=== PATIENT | female | born 1955 | race Caucasian/White ===

== ENCOUNTER 2016-11-30 13:09 | Outpatient (RCR) | payer OTHER | END 2017-02-21 | disposition home or self-care (01) | LOC: ONC 13:09 | PROVIDERS: ATTEND Internal Medicine Hematology & Oncology | DX: Z08 Encounter for follow-up examination after completed treatment for malignant neoplasm (principal); Z85.3 Personal history of malignant neoplasm of breast; I10 Essential (primary) hypertension; Z79.899 Other long term (current) drug therapy | CPT/HCPCS: 99213 ==

== ENCOUNTER 2017-05-17 14:13 | Outpatient (RCR) | payer OTHER | END 2017-07-30 | disposition home or self-care (01) | LOC: ONC 14:13 | PROVIDERS: ATTEND Internal Medicine Hematology & Oncology | DX: Z08 Encounter for follow-up examination after completed treatment for malignant neoplasm (principal); Z85.3 Personal history of malignant neoplasm of breast; I10 Essential (primary) hypertension; Z79.899 Other long term (current) drug therapy ==

== ENCOUNTER 2018-02-07 10:00 | Outpatient (CLI) | payer OTHER ==
[~2018-02-07] VITALS: Ht 170.2 cm; Wt 75.7 kg
[~2018-02-07 10:00] MED LIST: ATEN50TA PO; LEVO5TAB12 PO
== END 2018-02-07 10:58 ==
LOC: PREOP 10:00
PROVIDERS: ATTEND Internal Medicine
DX: Z01.818 Encounter for other preprocedural examination (principal); Z12.11 Encounter for screening for malignant neoplasm of colon; Z80.0 Family history of malignant neoplasm of digestive organs

== ENCOUNTER 2018-02-10 07:48 | Day surgery (SDC) | payer OTHER ==
--- NOTE | 2018-01-25 06:05 | HISTORY AND PHYSICAL ---
DATE OF SERVICE: HISTORY OF PRESENT ILLNESS: She is scheduled for a screening colonoscopy on the 02/10. She was seen in the office on 01/23/18. The patient is a 62-year-old white female referred by Dr. Camp for screening colonoscopy. She accomplished one other colonoscopy in [address] Couch and as far as she recalls no abnormalities were noted. She is deemed to be of higher than average risk as her father was diagnosed with colon cancer at the age of 71 and 2 of his brothers in their 70s as well and a grandfather of unknown age on his dad's side, all were diagnosed and ultimately succumbed to colon cancer. She also has a personal past history of breast cancer, treated with lumpectomy and radiation therapy in 2001. She reports otherwise feels well. She does complain of increased flatulence without belching, abdominal pain or blood in her stool. She denies any associated bloating and this has been going on for the past 6 months. FAMILY HISTORY: As stated in the HPI. PAST SURGICAL HISTORY: Significant for lumpectomy in 2001 with subsequent radiation therapy for localized breast cancer without evidence for recurrence and left total knee replacement in 2011 due to osteoarthritis. 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 PAST MEDICAL HISTORY: Significant for reported episodes of tachycardia, not ventricular in etiology as well as hypertension and then breast cancer as noted above without evidence for recurrence since 2001. MEDICATIONS ON ADMISSION: Include atenolol 50 mg daily, Xyzal 5 mg daily and a baby aspirin daily. PHYSICAL EXAMINATION: GENERAL: Reveals an anxious, pleasant white female, does not appear to be in acute distress. VITAL SIGNS: He is roughly 5 feet 6 inches, weighs 167 pounds with a blood pressure of 128/68. HEENT: Unremarkable. Sclerae nonicteric. Pharynx reveals no evidence for erythema with a Mallampati class 2 configuration. NECK: Revealed no JVD, adenopathy or bruits. CHEST: Clear. ABDOMEN: Soft, supple without mass, organomegaly or tenderness. No distention is noted. No bruits are noted. Bowel sounds are positive in all 4 quadrants. There is no evidence for hyperactivity. EXTREMITIES: Reveal no cyanosis, clubbing or edema. ASSESSMENT AND PLAN: 1. The patient is set up for screening colonoscopy on 02/10, deemed to be of higher than average risk due to personal history of breast cancer and a strong family history for colon cancer. Prep instructions with Suprep kit were given and questions were answered. 2. Increasing flatulence. History suggest the possibility that lactose intolerance may be contributing. We did discuss lactose free diet or supplemental enzymes OTC as directed prior to lactose containing foods as being options. We will discuss further after colonoscopy, possible recommendation for a probiotic therapy. In review of her electronic medical record and evaluation a little over 45 minutes care time spent, I thank you for the referral of this pleasant lady. Job ID: [id number] DocumentID: [id number] Dictated Date: 01/24/2018 11:54:58 Chief Lifestyle Officer Date: 01/24/2018 12:24:22 Dictated By: MIRTHA HASTINGS MD MTDD
[~2018-02-10] VITALS: Ht 170.2 cm; Wt 75.7 kg
[2018-02-10] MEDS ORDERED: D5 LR IV SOLUTION 1,000 ML IV STA (07:57)
[2018-02-10] MEDS ORDERED: D5 LR IV SOLUTION 1,000 ML IV ONE (07:59)
[2018-02-10] MEDS ORDERED: LIDOCAINE JELLY 2% (XYLOCAINE) 5 ML TUBE MM PRN (08:00)
[2018-02-10 08:25] VITALS: BP 127/67
[2018-02-10] MEDS ORDERED: fentaNYL INJECTION 100 MCG/2 ML AMP ONE ×2 (09:07→09:54)
[2018-02-10] MEDS ORDERED: MIDAZOLAM 2 MG/2 ML (VERSED) VIAL ONE ×2 (09:07→09:54)
[2018-02-10] MEDS ORDERED: LIDOCAINE JELLY 2% (XYLOCAINE) 5 ML TUBE ONE (09:08)
[2018-02-10] MEDS: fentaNYL INJECTION 100 MCG/2 ML AMP IVP PRN ×3 (09:40→10:00)
[2018-02-10] MEDS: MIDAZOLAM 2 MG/2 ML (VERSED) VIAL IVP PRN ×2 (09:45→09:55)
--- NOTE | 2018-02-10 10:24 | Pre-Op Note & Conscious Sedat ---
Pre-Operative Progress Note H&P Reviewed The H&P was reviewed, patient examined and no changes noted. Date H&P Reviewed: Feb 10, 2018 Time H&P Reviewed: 09:30 Conscious Sedation Pre-Proced ASA Class: 2 Airway Mallampati Classification: ([place] appropriate class) I. II. III, IV Lungs Heart ASA score ASA 1: a normal healthy patient ASA 2: a patient with a mild systemic disease (mid diabetes, controlled hypertension, obesity ASA 3: a patient with a severe systemic disease that limits activity (angina , COPD, prior Myocardial infarction) ASA 4: a patient with an incapacitating disease that is a constant threat to life (CHF, renal failure) ASA 5: a moribund patient not expected to survive 24 hrs. (ruptured aneurysm) ASA 6: a declared brain patient whose organs are being harvested. For emergent operations, add the letter E after the classification Grade 2 Sedation Plan: Analgesia, Amnesia, Plan communicated to team members, Discussed options with patient/fam, Discussed risks with patient/fam Note The patient is an appropriate candidate to undergo the planned procedure, sedation, and anesthesia. The patient immediately re-assessed prior to indication. MIRTHA HASTINGS MD Feb 10, 2018 10:24
[2018-02-10 10:30] VITALS: BP 105/57
[2018-02-10 11:00] VITALS: BP 139/71
[2018-02-10 11:50] VITALS: BP 139/71
--- NOTE | 2018-02-11 00:06 | OPERATIVE REPORT ---
DATE OF SERVICE: 02/10/2018 COLONOSCOPY INDICATION FOR THE PROCEDURE: Screening colonoscopy. DESCRIPTION OF PROCEDURE: The patient was placed in left lateral decubitus position. Prior to undergoing colonoscopy, digital rectal evaluation was performed. Anal sphincter tone was normal and the perianal reflexes intact. No abnormalities, no additional inspection of anal canal or distal rectal vault. The colonoscope was then inserted into the rectum under direct visualization and advanced to the cecum. The cecum was identified by identification of the ileocecal valve and cecal strap. Photographic documentation was obtained. Careful inspection was made as the colonoscope was withdrawn. FINDINGS: No other evidence for internal or external hemorrhoids. Present in the mid rectum was a diminutive hyperplastic appearing polyp. It was biopsied, cauterized and submitted for histopathology with no subsequent blood loss. The sigmoid colon, descending colon, splenic flexure, transverse colon, hepatic flexure, ascending colon and cecum were unremarkable. No evidence for diverticular disease was noted. ASSESSMENT: Diminutive hyperplastic appearing polyp was removed from the mid rectum with subsequent cauterization. This was an otherwise normal colonoscopy to the cecum. I would advocate consideration for repeat screening colonoscopy in 10 years. I thank you for the referral of this pleasant lady. Sincerely, Job ID: [id number] DocumentID: [id number] Dictated Date: 02/10/2018 12:35:10 Tugboat Engineer Date: 02/10/2018 16:04:02 Dictated By: MIRTHA HASTINGS MD
--- OUTSIDE RECORDS SUMMARY | 2018-02-12 06:59 | XMS REPORT | Clinical Summary ---
Author Author Admin, MICHEAL Organization [facility] Address Unknown Phone Unavailable Allergies, Adverse Reactions, Alerts Allergy Name Reaction Description Start Date Severity Status Provider PCN Critical Active Yolanda Chapman MD Conditions or Problems Problem Name Problem Code Onset Date Status Entry Date Provider Comment Standard Description Annotate Hematuria Active Yolanda Chapman MD Hematuria , unspecified Medication List Medication Instructions Start Date Stop Date Generic Name NDC Status Provider Patient Instruction CYCLOBENZAPRINE HCL 10 MG ORAL TABS 1 tab daily CYCLOBENZAPRINE HCL 38976759623 Active Yolanda Chapman MD Active LEVOCETIRIZINE DIHYDROCHLORIDE 5 MG ORAL TABS 1 tab daily LEVOCETIRIZINE DIHYDROCHLORIDE 22518187436 Active Yolanda Chapman MD Active Advance Directives Directive Description Start Date PERMISSION TO SHARE Vital Signs Date Name Value Unit Range Description blood pressure, diastolic 70 mm[Hg] BP jaeger blood pressure, systolic 122 mm[Hg] BP sys height E&M 67 [in_us] Bdy height pulse rate E&M 64 /min Heart rate temperature E&M 97.7 [degF] Body temperature weight E&M 165 [lb_av] Weight Measured Diagnostic Results Date Name Value Unit Range Description Office Visit: Cn Hematuria - Chemistry RBC, urine, dipstick 2+ protein, total urine random trace mg/dL Office Visit: Cn Hematuria - Urinalysis pH, urine, semiquantitative 6.5 specific gravity, urine 1.015 urinalysis, routine Clean Catch ketones, urine, by test strip negative bilirubin, urine negative glucose, urine, semiquantitative negative urine color yellow appearance, urine clear leukocyte esterase, urine, by dipstick negative nitrite, urine, semiquantitative negative urobilinogen, urine, semiquantitative (dipstick) 0.2 protein, urine, semiquantitative (dipstick) negative Encounters Code Encounter Date Provider Facility [id number] Level 4 New Patient 14:08:07 CDT Yolanda Chapman MD [facility] Procedures Code Procedure Name Date Entry Date Standard Description CPT-40583 Cystoscopy 14:08:07 CDT
--- OUTSIDE RECORDS SUMMARY | 2018-02-12 06:59 | XMS REPORT | Clinical Summary ---
Author Author Admin, MICHEAL Organization [facility] Address Unknown Phone Unavailable Allergies, Adverse Reactions, [...] ORAL TABS 1 tab daily CYCLOBENZAPRINE HCL 24510420313 Active Yolanda Chapman MD Active LEVOCETIRIZINE DIHYDROCHLORIDE 5 MG ORAL TABS 1 tab daily LEVOCETIRIZINE DIHYDROCHLORIDE 09524728248 Active Yolanda Chapman MD Active Advance Directives [...] negative Encounters Code Encounter Date Provider Facility CPT-41424 Level 4 New Patient 14:08:07 CDT Yolanda Chapman MD [facility] Procedures Code Procedure Name Date Entry Date Standard Description CPT-54413 Cystoscopy 14:08:07 CDT
--- OUTSIDE RECORDS SUMMARY | 2018-02-12 06:59 | XMS REPORT | Clinical Summary ---
Author Author Admin, MICHEAL Organization [facility] Address Unknown Phone Unavailable Allergies, Adverse Reactions, [...] ORAL TABS 1 tab daily CYCLOBENZAPRINE HCL 34141168024 Active Yolanda Chapman MD Active LEVOCETIRIZINE DIHYDROCHLORIDE 5 MG ORAL TABS 1 tab daily LEVOCETIRIZINE DIHYDROCHLORIDE 67573372760 Active Yolanda Chapman MD Active Vital Signs Date Name Value Unit Range [...] negative Encounters Code Encounter Date Provider Facility CPT-62409 Level 4 New Patient 14:08:07 CDT Yolanda Chapman MD [facility] Procedures Code Procedure Name Date Entry Date Standard Description CPT-00493 Cystoscopy 14:08:07 CDT
--- OUTSIDE RECORDS SUMMARY | 2018-02-12 06:59 | XMS REPORT | Clinical Summary ---
Author Author Admin, MICHEAL Organization [facility] Address Unknown Phone Unavailable Allergies, Adverse [...] ORAL TABS 1 tab daily CYCLOBENZAPRINE HCL 94728331820 Active Yolanda Chapman MD Active LEVOCETIRIZINE DIHYDROCHLORIDE 5 MG ORAL TABS 1 tab daily LEVOCETIRIZINE DIHYDROCHLORIDE 18410111694 Active Yolanda Chapman MD Active Advance Directives [...] negative Encounters Code Encounter Date Provider Facility CPT-66773 Level 4 New Patient 14:08:07 CDT Yolanda Chapman MD [facility] Procedures Code Procedure Name Date Entry Date Standard Description CPT-96124 Cystoscopy 14:08:07 CDT
--- OUTSIDE RECORDS SUMMARY | 2018-02-12 06:59 | XMS REPORT | Clinical Summary ---
Author Author Admin, MICHEAL Organization [facility] Address Unknown Phone Unavailable Allergies, Adverse [...] ORAL TABS 1 tab daily CYCLOBENZAPRINE HCL 77527427566 Active Yolanda Chapman MD Active LEVOCETIRIZINE DIHYDROCHLORIDE 5 MG ORAL TABS 1 tab daily LEVOCETIRIZINE DIHYDROCHLORIDE 20950087334 Active Yolanda Chapman MD Active Advance Directives [...] negative Encounters Code Encounter Date Provider Facility CPT-73476 Level 4 New Patient 14:08:07 CDT Yolanda Chapman MD [facility] Procedures Code Procedure Name Date Entry Date Standard Description CPT-52247 Cystoscopy 14:08:07 CDT
--- OUTSIDE RECORDS SUMMARY | 2018-02-12 06:59 | XMS REPORT | Clinical Summary ---
Author Author Admin, MICHEAL Organization [facility] Address Unknown Phone Unavailable Allergies, Adverse Reactions, [...] ORAL TABS 1 tab daily CYCLOBENZAPRINE HCL 40925224210 Active Yolanda Chapman MD Active LEVOCETIRIZINE DIHYDROCHLORIDE 5 MG ORAL TABS 1 tab daily LEVOCETIRIZINE DIHYDROCHLORIDE 61464743743 Active Yolanda Chapman MD Active Advance Directives [...] negative Encounters Code Encounter Date Provider Facility CPT-16084 Level 4 New Patient 14:08:07 CDT Yolanda Chapman MD [facility] Procedures Code Procedure Name Date Entry Date Standard Description CPT-03588 Cystoscopy 14:08:07 CDT
--- OUTSIDE RECORDS SUMMARY | 2018-02-12 06:59 | XMS REPORT | Continuity of Care Document ---
Author Author [facility] Organization [facility] Address Unknown Phone Unavailable Allergies Active Description Code Type Severity Reaction Onset Reported/Identified Relationship to Patient Clinical Status Yes Penicillins [id number] Drug Allergy Severe HIVES 04/22/2015 Medications There is no data. Problems Date Dx Coded Attending Type Code Diagnosis Diagnosed By 10/30/2009 Ot 174.9 12/31/2013 MARCELLO LIRA MD Ot 401.9 HYPERTENSION NOS 12/31/2013 MARCELLO LIRA MD Ot V10.3 HX OF BREAST MALIGNANCY 12/31/2013 MARCELLO LIRA MD Ot V58.69 OTH MED,LT,CURRENT USE 12/31/2013 MARCELLO LIRA MD Ot V67.1 RADIOTHERAPY FOLLOW-UP 07/28/2014 MARCELLO LIRA MD Ot 401.9 HYPERTENSION NOS 07/28/2014 MARCELLO LIRA MD Ot V10.3 HX OF BREAST MALIGNANCY 07/28/2014 MARCELLO LIRA MD Ot V58.69 OTH MED,LT,CURRENT USE 07/28/2014 MARCELLO LIRA MD Ot V67.1 RADIOTHERAPY FOLLOW-UP 10/18/2014 MARCELLO LIRA MD Ot 401.9 10/18/2014 MARCELLO LIRA MD Ot V10.3 10/18/2014 MARCELLO LIRA MD Ot V58.69 10/18/2014 MARCELLO LIRA MD Ot V67.1 10/21/2014 MARCELLO LIRA MD Ot 401.9 10/21/2014 MARCELLO LIRA MD Ot V10.3 10/21/2014 MARCELLO LIRA MD Ot V58.69 10/21/2014 MARCELLO LIRA MD Ot V67.1 10/21/2014 MARCELLO LIRA MD Ot 401.9 10/21/2014 MARCELLO LIRA MD Ot V10.3 10/21/2014 MARCELLO LIRA MD Ot V58.69 10/21/2014 SORAYA SCHUSTER, ASHLEIGH-ANGELIA Ot V67.1 10/22/2014 SORAYA SCHUSTER, ASHLEIGH-ANGELIA Ot 401.9 10/22/2014 SORAYA SCHUSTER, ASHLEIGH-ANGELIA Ot V10.3 10/22/2014 SORAYA SCHUSTER, SOTELO-ANGELIA Ot V58.69 10/22/2014 SORAYA SCHUSTER, ASHLEIGH-ANGELIA Ot V67.1 11/28/2014 SORAYA SCHUSTER, MARCELLO Ot 401.9 11/28/2014 SORAYA SCHUSTER, ASHLEIGH-ANGELIA Ot V10.3 11/28/2014 SORAYA SCHUSTER, ASHLEIGH-ANGELIA Ot V58.69 11/28/2014 SORAYA SCHUSTER, MARCELLO Ot V67.1 01/19/2015 SORAYA SCHUSTER, MARCELLO Ot 401.9 HYPERTENSION NOS 01/19/2015 SORAYA SCHUSTER, MARCELLO Ot V10.3 HX OF BREAST MALIGNANCY 01/19/2015 SORAYA SCHUSTER, MARCELLO Ot V58.69 OT MED,LT,CURRENT USE 01/19/2015 SORAYA SCHUSTER, MARCELLO Ot V67.1 RADIOTHERAPY FOLLOW-UP 04/16/2015 SORAYA SCHUSTER, MARCELLO Ot 401.9 04/16/2015 SORAYA SCHUSTER, MARCELLO Ot V10.3 04/16/2015 SORAYA SCHUSTER, ASHLEIGH-ANGELIA Ot V58.69 04/16/2015 SORAYA SCHUSTER, MARCELLO Ot V67.1 04/16/2015 SORAYA SCHUSTER, MARCELLO Ot 401.9 04/16/2015 SORAYA SCHUSTER, MARCELLO Ot V10.3 04/16/2015 SORAYA SCHUSTER, MARCELLO Ot V58.69 04/16/2015 SORAYA SCHUSTER, MARCELLO Ot V67.1 04/18/2015 SORAYA SCHUSTER, MARCELLO Ot 401.9 04/18/2015 SORAYA SCHUSTER, MARCELLO Ot V10.3 04/18/2015 SORAYA SCHUSTER, ASHLEIGH-ANGELIA Ot V58.69 04/18/2015 SORAYA SCHUSTER, MARCELLO Ot V67.1 04/21/2015 CAMILO CARUSO DO Ot 785.0 04/21/2015 CAMILO CARUSO DO Ot 785.1 04/21/2015 CAMILO CARUSO DO Ot 786.50 04/21/2015 SORAYA SCHUSTER, MARCELLO Ot 401.9 04/21/2015 SORAYA SCHUSTER, SOTELO-ANGELIA Ot V10.3 04/21/2015 SORAYA SCHUSTER, SOTELOANTHONY Ot V58.69 04/21/2015 SORAYA SCHUSTER, SOTELOANTHONY Ot V67.1 04/21/2015 SORAYA SCHUSTER, ASHLEIGH-ANGELIA Ot 401.9 04/21/2015 SORAYA SCHUSTER, SOTELO-ANGELIA Ot V10.3 04/21/2015 SORAYA SCHUSTER, SOTELO-ANGELIA Ot V58.69 04/21/2015 SORAYA SCHUSTER, MARCELLO Ot V67.1 04/21/2015 SORAYA SCHUSTER, SOTELO-ANGELIA Ot 401.9 04/21/2015 SORAYA SCHUSTER, MARCELLO Ot V10.3 04/21/2015 SORAYA SCHUSTER, SOTELOANTHONY Ot V58.69 04/21/2015 SORAYA SCHUSTER, SOTELO-ANGELIA Ot V67.1 04/22/2015 SORAYA SCHUSTER, SOTELOANTHONY Ot 401.9 04/22/2015 SORAYA SCHUSTER, MARCELLO Ot V10.3 04/22/2015 SORAYA SCHUSTER, SOTELOANTHONY Ot V58.69 04/22/2015 SORAAY SCHUSTER, SOTELOANTHONY Ot V67.1 04/22/2015 SORAYA SCHUSTER, SOTELOANTHONY Ot 401.9 04/22/2015 SORAYA SCHUSTER, SOTELOANTHONY Ot V10.3 04/22/2015 SORAYA SCHUSTER, LORRIEANGELIA Ot V58.69 04/22/2015 SORAYA SCHUSTER, MARCELLO Ot V67.1 04/22/2015 CODI BORGES DO Ot 401.9 HYPERTENSION NOS 04/22/2015 KATERINA HAIR, CODI K Ot 473.9 CHRONIC SINUSITIS NOS 04/22/2015 KATERINA HAIR, CODI K Ot 780.79 OTH MALAISE FATIGUE 04/22/2015 KATERINA HAIR CODI K Ot V58.69 OTH MED,LT,CURRENT USE 04/30/2015 CAMILO CARUSO DO Ot 785.0 04/30/2015 CAMILO CARUSO DO Ot 785.1 04/30/2015 CAMILO CARUSO DO Ot 786.50 04/30/2015 SORAYA SCHUSTER, MARCELLO Ot 401.9 04/30/2015 SORAYA SCHUSTER, MARCELLO Ot V10.3 04/30/2015 SORAYA SCHUSTER, MARCELLO Ot V58.69 04/30/2015 SORAYA SCHUSTER, ASHLEIGH-ANGELIA Ot V67.1 05/05/2015 SORAYA SCHUSTER, ASHLEIGH-ANGELIA Ot 401.9 05/05/2015 SORAYA SCHUSTER, MARCELLO Ot V10.3 05/05/2015 SORAYA SCHUSTER, MARCELLO Ot V58.69 05/05/2015 SORAYA SCHUSTER, MARECLLO Ot V67.1 06/06/2015 ZULY DO, CAMILO Guerrero Ot 785.0 06/06/2015 CARUSO DO, CAMILO Guerrero Ot 785.1 06/06/2015 CARUSO DO, CAMILO Guerrero Ot 786.50 06/06/2015 SORAYA SCHUSTER, MARCELLO Ot 401.9 06/06/2015 SORAYA SCHUSTER, MARCELLO Ot V10.3 06/06/2015 SORAYA SCHUSTER, MARCELLO Ot V58.69 06/06/2015 SORAYA SCHUSTER, MARCELLO Ot V67.1 06/06/2015 CAMILO CARUSO DO Ot 784.0 07/20/2015 SORAYA SCHUSTER, MARCELLO Ot 401.9 HYPERTENSION NOS 07/20/2015 SORAYA SCHUSTER, MARCELLO Ot I10 ESSENTIAL (PRIMARY) HYPERTENSION 07/20/2015 SORAYA SCHUSTER, MARCELLO Ot V10.3 HX OF BREAST MALIGNANCY 07/20/2015 SORAYA SCHUSTER, MARCELLO Ot V58.69 OT MED,LT,CURRENT USE 07/20/2015 SORAYA SCHUSTER, MARCELLO Ot V67.1 RADIOTHERAPY FOLLOW-UP 07/20/2015 SORAYA SCHUSTER, MARCELLO Ot Z85.3 PERSONAL HISTORY OF MALIGNANT NEOPLASM O 11/04/2015 SORAYA SCHUSTER, MARCELLO Ot 401.9 11/04/2015 SORAYA SCHUSTER, MARCELLO Ot V10.3 11/04/2015 SORAYA SCHUSTER, MARCELLO Ot V58.69 11/04/2015 SORAYA SCHUSTER, MARCELLO Ot V67.1 11/05/2015 SORAYA SCHUSTER, MARCELLO Ot 401.9 11/05/2015 SORAYA SCHUSTER, MARCELLO Ot I10 11/05/2015 SORAYA SCHUSTER, MARCELLO Ot V10.3 11/05/2015 SORAYA SCHUSTER, MARCELLO Ot V58.69 11/05/2015 SORAYA SCHUSTER, MARCELLO Ot V67.1 11/05/2015 SORAYA SCHUSTER, MARCELLO Ot Z08 11/05/2015 SORAYA SCHUSTER, MARCELLO Ot Z79.899 11/05/2015 MARCELLO LIRA MD Ot Z85.3 02/02/2016 MARCELLO LIRA MD Ot I10 ESSENTIAL (PRIMARY) HYPERTENSION 02/02/2016 MARCELLO LIRA MD Ot Z08 ENCNTR FOR FOLLOW-UP EXAM AFTER TRTMT FO 02/02/2016 MARCELLO LIRA MD Ot Z79.899 OTHER JAIL (CURRENT) DRUG THERAPY 02/02/2016 MARCELLO LIRA MD Ot Z85.3 PERSONAL HISTORY OF MALIGNANT NEOPLASM O 02/03/2016 MARCELLO LIRA MD Ot I10 02/03/2016 SORAYA SCHUSTER, MARCELLO Ot Z08 02/03/2016 SORAYA SCHUSTER, MARCELLO Ot Z79.899 02/03/2016 MARCELLO LIRA MD Ot Z85.3 06/11/2016 MARCELLO LIAR MD Ot I10 ESSENTIAL (PRIMARY) HYPERTENSION 06/11/2016 MARCELLO LIRA MD Ot Z08 ENCNTR FOR FOLLOW-UP EXAM AFTER TRTMT FO 06/11/2016 MARCELLO LIRA MD Ot Z79.899 OTHER LEAN LEADER (CURRENT) DRUG THERAPY 06/11/2016 MARCELLO LIRA MD Ot Z85.3 PERSONAL HISTORY OF MALIGNANT NEOPLASM O 06/16/2016 CAMILO CARUSO DO Ot 785.0 TACHYCARDIA NOS 06/16/2016 CAMILO CARUSO DO Ot 785.1 PALPITATIONS 06/16/2016 CAMILO CARUSO DO Ot 786.50 CHEST PAIN NOS 06/16/2016 CAMILO CARUSO DO Ot 784.0 HEADACHE 06/16/2016 MARCELLO LIRA MD Ot I10 ESSENTIAL (PRIMARY) HYPERTENSION 06/16/2016 MARCELLO LIRA MD Ot Z08 ENCNTR FOR FOLLOW-UP EXAM AFTER TRTMT FO 06/16/2016 MARCELLO LIRA MD Ot Z79.899 OTHER JAIL (CURRENT) DRUG THERAPY 06/16/2016 MARCELLO LRIA MD Ot Z85.3 PERSONAL HISTORY OF MALIGNANT NEOPLASM O 06/18/2016 CARUSO, WINNIE L DRAFTER DETAIL Ot R10.84 GENERALIZED ABDOMINAL PAIN 06/18/2016 WINNIE CARUSO DRAFTER DETAIL Ot R31.9 HEMATURIA, UNSPECIFIED 08/02/2016 MARCELLO LIRA MD, Ot I10 ESSENTIAL (PRIMARY) HYPERTENSION 08/02/2016 MARCELLO LIRA MD, Ot Z08 ENCNTR FOR FOLLOW-UP EXAM AFTER TRTMT FO 08/02/2016 MARCELLO LIRA MD, Ot Z79.899 OTHER JAIL (CURRENT) DRUG THERAPY 08/02/2016 MARCELLO LIRA MD, Ot Z85.3 PERSONAL HISTORY OF MALIGNANT NEOPLASM O 08/03/2016 MARCELLO LIRA MD, Ot I10 ESSENTIAL (PRIMARY) HYPERTENSION 08/03/2016 MARCELLO LIRA MD, Ot Z08 ENCNTR FOR FOLLOW-UP EXAM AFTER TRTMT FO 08/03/2016 MARCELLO LIRA MD, Ot Z79.899 OTHER JAIL (CURRENT) DRUG THERAPY 08/03/2016 MRACELLO LIRA MD, Ot Z85.3 PERSONAL HISTORY OF MALIGNANT NEOPLASM O 11/23/2016 ZULY HAIR, CAMILO J Ot 785.0 TACHYCARDIA NOS 11/23/2016 ZULY HAIR, CAMILO J Ot 785.1 PALPITATIONS 11/23/2016 ZULY HAIR, CAMILO J Ot 786.50 CHEST PAIN NOS 11/23/2016 ZULY HAIR, CAMILO Guerrero Ot 784.0 HEADACHE 11/23/2016 WINNIE CARUSO DRAFTER DETAIL Ot R10.84 GENERALIZED ABDOMINAL PAIN 11/23/2016 WINNIE CARUSO DRAFTER DETAIL Ot R31.9 HEMATURIA, UNSPECIFIED 11/23/2016 MARCELLO LIRA MD Ot I10 ESSENTIAL (PRIMARY) HYPERTENSION 11/23/2016 MARCELLO LIRA MD, Ot Z08 ENCNTR FOR FOLLOW-UP EXAM AFTER TRTMT FO 11/23/2016 MARCELLO LIRA MD Ot Z79.899 OTHER JAIL (CURRENT) DRUG THERAPY 11/23/2016 MARCELLO LIRA MD Ot Z85.3 PERSONAL HISTORY OF MALIGNANT NEOPLASM O 12/08/2016 MARCELLO LIRA MD Ot I10 ESSENTIAL (PRIMARY) HYPERTENSION 12/08/2016 MARCELLO LIRA MD Ot Z08 ENCNTR FOR FOLLOW-UP EXAM AFTER TRTMT FO 12/08/2016 MARCELLO LIRA MD Ot Z79.899 OTHER JAIL (CURRENT) DRUG THERAPY 12/08/2016 MARCELLO LIRA MD Ot Z85.3 PERSONAL HISTORY OF MALIGNANT NEOPLASM O 02/21/2017 MARCELLO LIRA MD Ot I10 ESSENTIAL (PRIMARY) HYPERTENSION 02/21/2017 MARCELLO LIRA MD Ot Z08 ENCNTR FOR FOLLOW-UP EXAM AFTER TRTMT FO 02/21/2017 MARCELLO LIRA MD Ot Z79.899 OTHER JAIL (CURRENT) DRUG THERAPY 02/21/2017 MARCELLO LIRA MD Ot Z85.3 PERSONAL HISTORY OF MALIGNANT NEOPLASM O 07/30/2017 MARCELLO LIRA MD Ot I10 ESSENTIAL (PRIMARY) HYPERTENSION 07/30/2017 MARCELLO LIRA MD Ot Z08 ENCNTR FOR FOLLOW-UP EXAM AFTER TRTMT FO 07/30/2017 MARCELLO LIRA MD Ot Z79.899 OTHER LEAN LEADER (CURRENT) DRUG THERAPY 07/30/2017 MARCELLO LIRA MD Ot Z85.3 PERSONAL HISTORY OF MALIGNANT NEOPLASM O 08/05/2017 MARCELLO LIRA MD Ot I10 ESSENTIAL (PRIMARY) HYPERTENSION 08/05/2017 MARCELLO LIRA MD Ot Z08 ENCNTR FOR FOLLOW-UP EXAM AFTER TRTMT FO 08/05/2017 MARCELLO LIRA MD Ot Z79.899 OTHER JAIL (CURRENT) DRUG THERAPY 08/05/2017 MARCELLO LIRA MD Ot Z85.3 PERSONAL HISTORY OF MALIGNANT NEOPLASM O 02/06/2018 MIRTHA HASTINGS MD Ot Z01.818 ENCOUNTER FOR OTHER PREPROCEDURAL EXAMIN 02/06/2018 MIRTHA HASTINGS MD Ot Z12.11 ENCOUNTER FOR SCREENING FOR MALIGNANT NE 02/06/2018 MIRTHA HASTINGS MD Ot Z80.0 FAMILY HISTORY OF MALIGNANT NEOPLASM OF 2018 MIRTHA HASTINGS MD Ot Z01.818 ENCOUNTER FOR OTHER PREPROCEDURAL EXAMIN 2018 MIRTHA HASTINGS MD Ot Z12.11 ENCOUNTER FOR SCREENING FOR MALIGNANT NE 2018 MIRTHA HASTINGS MD Ot Z80.0 FAMILY HISTORY OF MALIGNANT NEOPLASM OF 2018 MIRTHA HASTINGS MD Ot Z01.818 ENCOUNTER FOR OTHER PREPROCEDURAL EXAMIN 2018 MIRTHA HASTINGS MD Ot Z12.11 ENCOUNTER FOR SCREENING FOR MALIGNANT NE 2018 MIRTHA HASTINGS MD Ot Z80.0 FAMILY HISTORY OF MALIGNANT NEOPLASM OF 02/08/2018 MIRTHA HASTINGS MD Ot Z01.818 ENCOUNTER FOR OTHER PREPROCEDURAL EXAMIN 02/08/2018 MIRTHA HASTINGS MD Ot Z12.11 ENCOUNTER FOR SCREENING FOR MALIGNANT NE 02/08/2018 MIRTHA HASTINGS MD Ot Z80.0 FAMILY HISTORY OF MALIGNANT NEOPLASM OF 02/08/2018 CARUSO DO, CAMILO J Ot 785.0 TACHYCARDIA NOS 02/08/2018 CARUSO DO, CAMILO J Ot 785.1 PALPITATIONS 02/08/2018 CARUSO DO, CAMILO J Ot 786.50 CHEST PAIN NOS 02/08/2018 CARUSO DO, CAMILO J Ot 784.0 HEADACHE 02/08/2018 CARUSOAGUSTO ZAPATARICIA L DRAFTER DETAIL Ot R10.84 GENERALIZED ABDOMINAL PAIN 02/08/2018 CARUSO, WINNIE L DRAFTER DETAIL Ot R31.9 HEMATURIA, UNSPECIFIED 02/08/2018 MARCELLO LIRA MD Ot I10 ESSENTIAL (PRIMARY) HYPERTENSION 02/08/2018 MARCELLO LIRA MD Ot Z08 ENCNTR FOR FOLLOW-UP EXAM AFTER TRTMT FO 02/08/2018 MARCELLO LIRA MD Ot Z79.899 OTHER LEAN LEADER (CURRENT) DRUG THERAPY 02/08/2018 MARCELLO LIRA MD Ot Z85.3 PERSONAL HISTORY OF MALIGNANT NEOPLASM O 02/10/2018 CARUSO DO, CAMILO J Ot 785.0 TACHYCARDIA NOS 02/10/2018 CARUSO DO, CAMILO J Ot 785.1 PALPITATIONS 02/10/2018 CARUSO DO, CAMILO J Ot 786.50 CHEST PAIN NOS 02/10/2018 CARUSO DO, CAMILO J Ot 784.0 HEADACHE 02/10/2018 CARUSO, WINNIE L DRAFTER DETAIL Ot R10.84 GENERALIZED ABDOMINAL PAIN 02/10/2018 CARUSO, WINNIE L DRAFTER DETAIL Ot R31.9 HEMATURIA, UNSPECIFIED 02/10/2018 MARCELLO LIRA MD Ot I10 ESSENTIAL (PRIMARY) HYPERTENSION 02/10/2018 MARCELLO LIRA MD Ot Z08 ENCNTR FOR FOLLOW-UP EXAM AFTER TRTMT FO 02/10/2018 SORAYA SCHUSTER, MARCELLO Ot Z79.899 OTHER JAIL (CURRENT) DRUG THERAPY 02/10/2018 MARCELLO LIRA MD Ot Z85.3 PERSONAL HISTORY OF MALIGNANT NEOPLASM O Procedures There is no data. Results There is no data. Encounters ACCT No. Visit Date/Time Discharge Status Pt. Type Provider Facility Loc./Unit Complaint [id number] 02/10/2018 07:48:00 02/10/2018 11:50:00 DIS Outpatient MIRTHA HASTINGS MD [facility] ENDO SCREENING/FAMILY HX OF COLON CA [id number] 2018 10:00:00 2018 10:58:00 DIS Outpatient MIRTHA HASTINGS MD [facility] PREOP COLONOSCOPY [id number] 07/31/2017 00:23:00 07/31/2017 23:59:59 CLS Preadmit MARCELLO LIRA MD [facility] ONC [id number] 05/17/2017 14:13:00 07/30/2017 00:01:00 DIS Outpatient MARCELLO LIRA MD [facility] ONC [id number] 11/30/2016 13:09:00 02/21/2017 00:01:00 DIS Outpatient MARCELLO LIRA MD [facility] ONC [id number] 05/11/2016 13:33:00 08/02/2016 00:01:00 DIS Outpatient MARCELLO LIRA MD [facility] ONC [id number] 06/16/2016 16:11:00 06/16/2016 23:59:59 CLS Outpatient WINNIE CARUSO [facility] RAD HEMATURIA,FLANK PAIN [id number] 11/11/2015 13:09:00 02/02/2016 00:01:00 DIS Outpatient MARCELLO LIRA MD [facility] ONC [id number] 05/07/2015 13:13:00 07/20/2015 00:01:00 DIS Outpatient MARCELLO LIRA MD [facility] ONC [id number] 04/30/2015 15:39:00 04/30/2015 23:59:59 CLS Outpatient CAMILO CARUSO DO [facility] RAD SEVER HEADACHE [id number] 04/22/2015 15:21:00 04/22/2015 17:08:00 DIS Emergency CODI BORGES DO [facility] ER HIGH BLOOD PRESSURE; HEADACHE [id number] 10/29/2014 12:48:00 01/19/2015 00:01:00 DIS Outpatient MARCELLO LIRA MD [facility] ONC [id number] 04/29/2014 10:13:00 07/28/2014 00:01:00 DIS Outpatient MARCELLO LIRA MD [facility] ONC [id number] 01/04/2014 06:31:00 01/04/2014 23:59:59 CLS Outpatient CAMILO CARUSO DO [facility] RAD CHEST PAIN, PALPITATIONS,TACHYCARDIA [id number] 10/10/2013 14:48:00 12/31/2013 00:01:00 DIS Outpatient MARCELLO LIRA MD [facility] ONC [id number] 04/10/2013 13:13:00 07/02/2013 00:01:00 DIS Outpatient [id number] 05/14/2013 14:09:00 05/14/2013 23:59:59 CLS Outpatient [id number] 10/01/2009 15:00:00 Document Registration [id number] 06/15/2017 12:47:00 06/15/2017 23:59:00 DIS Outpatient CARISA SILVER [id number] 12/30/2017 14:20:59 ACT Unknown
== END 2018-02-10 11:50 | disposition home or self-care (01) ==
LOC: ENDO 07:48
PROVIDERS: ATTEND Internal Medicine
DX: Z12.11 Encounter for screening for malignant neoplasm of colon (principal); K62.1 Rectal polyp; Z80.0 Family history of malignant neoplasm of digestive organs; I10 Essential (primary) hypertension; R00.0 Tachycardia, unspecified; F17.210 Nicotine dependence, cigarettes, uncomplicated; Z85.3 Personal history of malignant neoplasm of breast; Z79.82 Long term (current) use of aspirin; Z79.899 Other long term (current) drug therapy; Z92.21 Personal history of antineoplastic chemotherapy
CPT/HCPCS: 88305

== ENCOUNTER → 2018-10-02 | Outpatient (CLI) | payer OTHER ==
--- NOTE | 2018-10-02 15:26 | Diagnostic Imaging Report ---
INDICATION: Mid chest pain and left mid anterior rib pain. TIME OF EXAM 10:34 AM FINDINGS: No displaced rib fracture is identified. The lungs are clear. No parenchymal contusion, effusion or pneumothorax is seen. IMPRESSION: No acute abnormality is detected. Dictated by: Dictated on workstation # [id number]
== END ==
LOC: RAD 09:57
PROVIDERS: ATTEND Internal Medicine
DX: R07.81 Pleurodynia (principal)
CPT/HCPCS: 71100

== ENCOUNTER → 2019-08-07 | Outpatient (CLI) | payer OTHER ==
--- NOTE | 2019-08-07 17:28 | Diagnostic Imaging Report ---
INDICATION: Neck pain, greatest on the right side. TIME OF EXAM: 5:20 p.m. FINDINGS: Three views of the cervical spine were obtained. There is slight reversal of normal cervical lordotic curvature. There is mild anterolisthesis of C4 on C5. Severe degenerative disc disease is noted at the C4-C5, C5-C6, and C6-C7 levels where there is significant disc space narrowing and marginal osteophyte formation. There is multilevel facet arthropathy noted. No definite fracture is seen. Prevertebral tissues are normal. Odontoid appears to be intact. IMPRESSION: Severe cervical spondylosis and listhesis, as described. No acute bony abnormality is detected. Dictated by: Dictated on workstation # [id number]
== END ==
LOC: RAD 17:05
PROVIDERS: ATTEND Nurse Practitioner Family
DX: M47.812 Spondylosis without myelopathy or radiculopathy, cervical region (principal); M43.12 Spondylolisthesis, cervical region
CPT/HCPCS: 72040

== ENCOUNTER 2019-10-22 13:49 | Outpatient (RCR) | payer OTHER | END 2019-10-22 15:46 | disposition home or self-care (01) | PROVIDERS: ATTEND Orthopaedic Surgery Orthopaedic Surgery of the Spine | DX: M47.812 Spondylosis without myelopathy or radiculopathy, cervical region (principal); Z96.651 Presence of right artificial knee joint; Z85.3 Personal history of malignant neoplasm of breast ==

== ENCOUNTER 2021-04-30 15:56 | Outpatient (RCR) | payer OTHER | END 2021-05-28 | disposition home or self-care (01) | DX: R42 Dizziness and giddiness (principal); M25.511 Pain in right shoulder; F17.210 Nicotine dependence, cigarettes, uncomplicated; M54.2 Cervicalgia; M41.9 Scoliosis, unspecified ==

== ENCOUNTER → 2022-04-29 | Outpatient (RCR) | payer MEDICARE | END | disposition home or self-care (01) | PROVIDERS: ATTEND Internal Medicine | DX: M54.51 Vertebrogenic low back pain (principal) ==

== ENCOUNTER 2022-05-19 12:48 | Outpatient (RCR) | payer MEDICARE | END 2022-05-30 | disposition home or self-care (01) | PROVIDERS: ATTEND Internal Medicine | DX: M54.50 Low back pain, unspecified (principal) ==

== ENCOUNTER 2022-06-02 12:49 | Outpatient (RCR) | payer MEDICARE | END 2022-06-30 | disposition home or self-care (01) | PROVIDERS: ATTEND Internal Medicine | DX: M54.50 Low back pain, unspecified (principal) ==

== ENCOUNTER → 2023-09-12 | Outpatient (CLI) | payer MEDICARE ==
[~2023-09-12] VITALS: Ht 170.2 cm; Wt 65.9 kg
[~2023-09-12] MED LIST changes: +ASPI-999 PO
== END | disposition home or self-care (01) ==
LOC: PREOP 05:40
PROVIDERS: ATTEND Specialist
DX: Z01.818 Encounter for other preprocedural examination (principal)

== ENCOUNTER 2023-09-15 08:58 | Day surgery (SDC) | payer MEDICARE ==
[~2023-09-15] VITALS: Ht 170.2 cm; Wt 65.9 kg
[2023-09-15] VITALS (7 sets, daily range): BP systolic 142–164; BP diastolic 70–116
[2023-09-15] MEDS ORDERED: LACTATED RINGERS 1,000 ML 1,000 ML IV PRN (09:30)
[2023-09-15] MEDS ORDERED: MIDAZOLAM INJ 2 MG/2 ML VIAL IVP ONE (09:30)
[2023-09-15] MEDS ORDERED: GEMCITABINE 1 GM/NS 50 ML X 2 SYRINGES IR ONE ×2 (09:45)
[2023-09-15] MEDS ORDERED: dexAMETHasone INJ 10 MG/ML 1 ML VIAL ONE (11:34)
[2023-09-15] MEDS ORDERED: ONDANSETRON INJECTION 4 MG/2 ML (SDV) ONE (11:34)
[2023-09-15] MEDS ORDERED: proPOfol INJECTION 200 MG/20 ML VIAL IV ONE (11:34)
[2023-09-15] MEDS ORDERED: LIDOCAINE PF 2% 5 ML VIAL ONE (11:34)
[2023-09-15] MEDS ORDERED: fentaNYL INJECTION 100 MCG/2 ML VIAL ONE (11:34)
--- NOTE | 2023-09-15 11:44 | Progress Note-Pre Operative ---
Pre-Operative Progress Note Date of Available H&P: Sep 08, 2023 Date H&P Reviewed: Sep 15, 2023 Time H&P Reviewed: 11:44 History & Physical: H&P Reviewed, No changes noted Pre-Operative Diagnosis: Bladder tumor Yolanda PALACIOS MD Sep 15, 2023 11:44
[2023-09-15] MEDS ORDERED: SEVOFLURANE (ULTANE) 15 ML INHAL SOLN ONE (12:26)
[2023-09-15] MEDS ORDERED: PHENYLEPHRINE 100 MCG/ML 10 ML (ANESTHESIA) SYR ONE (12:26)
--- NOTE | 2023-09-15 12:28 | Progress Note-Post Operative ---
Post-Operative Progess Note Surgeon (s)/Tire Man (s) Surgeon Yolanda PALACIOS MD Tire Man n/a Pre-Operative Diagnosis Bladder tumor Post-Operative Diagnosis same Post-Op Procedure Note Date of Procedure: Sep 15, 2023 Name of Procedure Performed: Cystoscopy, transurethral resection of bladder tumor Description & Findings Description and Findings: n/a Anesthesia Type General Estimated Blood Loss minimal Packing none. Specimen(s) collected/removed Bladder tumor Yolanda PALACIOS MD Sep 15, 2023 12:28
--- NOTE | 2023-09-15 12:30 | Discharge Inst-Urology ---
Discharge Inst-Urology Patient Instructions/Follow Up Plan/Assessment/Instructions Please make appointment to been seen in office in 1 weeks. Increase oral fluids for 48 hours and then as needed. Diet and Activity as tolerated. If questions or concerns contact your physician Or seek help at emergency department. Yolanda PALACIOS MD Sep 15, 2023 12:30
[2023-09-15] MEDS ORDERED: ACETAMINOPHEN 500 MG TABLET ONE (13:10)
[2023-09-15] MEDS ORDERED: ACETAMINOPHEN 500 MG TABLET PO ONE (13:15)
--- NOTE | 2023-09-15 13:32 | Anesthesia-General Post-Op ---
General Patient Condition Mental Status/LOC: Same as Preop Cardiovascular: Satisfactory Nausea/Vomiting: Absent Respiratory: Satisfactory Pain: Controlled Complications: Absent Post Op Complications Complications None Follow Up Care/Instructions Patient Instructions None needed. Anesthesia/Patient Condition Patient Condition Patient is doing well, no complaints, stable vital signs, no apparent adverse anesthesia problems. No complications reported per nursing. CHEN TRACY CRNA Sep 15, 2023 13:32
--- NOTE | 2023-09-15 15:35 | OPERATIVE REPORT ---
DATE OF SERVICE: 09/15/2023 PREOPERATIVE DIAGNOSIS: Bladder tumor. POSTOPERATIVE DIAGNOSIS: Bladder tumor. PROCEDURE PERFORMED: Cystoscopy, transurethral resection of bladder tumor, instillation of gemcitabine. FINDINGS: A 1-cm sessile bladder mass lateral to the right ureteral orifice. SPECIMEN: Bladder tumor. DESCRIPTION OF PROCEDURE: After informed consent was obtained, general anesthetic was administered. The patient was then prepped and draped in dorsal lithotomy position. She received IV Levaquin. Cystoscopy was then performed with a 23-Burmese cystoscope sheath and 30 and 70 degree lens. Panendoscopy of bladder revealed normal ureteral orifices. No stones, but a sessile bladder mass lateral to the right ureteral orifice, approximately 1 cm in size. Cystoscope was then removed. A 25 Burmese continuous flow resectoscope sheath was inserted with the obturator. The 30-degree lens and loop electrode were then used to resect the bladder tumor in its entirety. Plasma button electrode was then used to obtain hemostasis. Bladder tumor was evacuated from the bladder. A 20-Burmese Forman catheter was placed and gemcitabine instilled into the bladder and the catheter plugged. The patient was then taken to the recovery room having tolerated the procedure well. Plan will be to leave the gemcitabine indwelling for 2 hours and then remove the catheter. She will follow up in my office in one week to go over results. Job ID: [id number] DocumentID: [id number] Dictated Date: 09/15/2023 12:35:46 Gas Roller Operator Date: 09/15/2023 15:33:00 Dictated By: Grace PALACIOS MD
== END 2023-09-15 14:56 | disposition home or self-care (01) ==
LOC: SDC 08:58
PROVIDERS: ATTEND Specialist
DX: D49.4 Neoplasm of unspecified behavior of bladder (principal); R31.29 Other microscopic hematuria; R32 Unspecified urinary incontinence; F17.210 Nicotine dependence, cigarettes, uncomplicated
CPT/HCPCS: 87081; 88307